=== PATIENT | female | born 1975 | race Hispanic/Latino ===

== ENCOUNTER 2018-10-14 19:05 | Emergency (ER) | payer SELFPAY ==
[2018-10-14 19:42] LABS: Bilirubin Negative (Negative); Blood, Urine Moderate (Negative); Clarity Slightly Cloudy (Clear); Glucose, Urine (Dipstick) >=1000 mg/dL (Negative); Leukocyte Trace (Negative); Nitrite Positive (Negative); Protein, Urine (Dipstick) 100 mg/dL (Neg-Trace); Urobilinogen 0.2 mg/dL (0.2-1.0)
[2018-10-14 19:49] LABS: Bacteria/HPF 1+ HPF (None Seen); Squamous Epithelial 0-3 HPF (0-3); WBC/HPF 21-50 HPF (0-3)
[2018-10-14] MEDS ORDERED: traMADol HCl 50 MG TAB ONE (19:52)
[2018-10-14] MEDS ORDERED: Nitrofurantoin Macrocrystal 50 MG CAP ONE (19:53)
== END 2018-10-14 20:23 | disposition home or self-care (01) ==
LOC: NAV ERS 19:05
DX: N30.90 Cystitis, unspecified without hematuria (principal); E11.9 Type 2 diabetes mellitus without complications; Z79.84 Long term (current) use of oral hypoglycemic drugs
CPT/HCPCS: 36416; 81003; 81015; 99283